=== PATIENT | female | born 1955 | race Hispanic/Latino ===

== ENCOUNTER → 2020-11-12 | Day surgery (SDC) | payer MEDICARE ==
[~2020-11-12] MED LIST: AMLODIPINE BESYL5 MG PO; ASPIRIN81 MG PO; B COMPLEX1 EACH PO; KRILL OIL500 MG PO; LIDOCAINE HCL 1% 2 ML AMP ONE; MULTI-VITAMIN1 EACH PO; OR PHACO EYE KIT ONE; PREOP PHACO EYE KIT ONE
[2020-11-12 13:45] VITALS: BP 122/74
== END | disposition home or self-care (01) ==
LOC: OR 11:40
PROVIDERS: ATTEND Ophthalmology
DX: H25.12 Age-related nuclear cataract, left eye (principal); I10 Essential (primary) hypertension; F41.9 Anxiety disorder, unspecified; Z79.82 Long term (current) use of aspirin
CPT/HCPCS: 66984; J2001